=== PATIENT | male | born 2000 | race Two or more races ===

== ENCOUNTER 2020-10-28 00:07 | Emergency (ER) | payer OTHER ==
[~2020-10-28] VITALS: Ht 180.3 cm; Wt 72.6 kg
[2020-10-28] MEDS ORDERED: PEPCID40 MG PO (02:01)
[2020-10-28] MEDS ORDERED: MEDROL8 MG PO (02:01)
[2020-10-28] MEDS ORDERED: BENADRYL25 MG PO (02:01)
== END 2020-10-28 02:13 | disposition home or self-care (01) ==
LOC: EMR PED 00:07 → ER 00:12
DX: J30.81 Allergic rhinitis due to animal (cat) (dog) hair and dander (principal)